=== PATIENT | male | born 1950 | race Caucasian/White ===

== ENCOUNTER → 2017-08-22 | Outpatient (CLI) | payer OTHER | LOC: BRMIMAGING 13:04 | PROVIDERS: ATTEND Family Medicine | DX: Z13.820 Encounter for screening for osteoporosis (principal); M85.89 Other specified disorders of bone density and structure, multiple sites ==

== ENCOUNTER → 2017-11-25 | Outpatient (CLI) | payer MEDICARE, OTHER | LOC: FIMAGING 13:29 | PROVIDERS: ATTEND Family Medicine | DX: I82.593 Chronic embolism and thrombosis of other specified deep vein of lower extremity, bilateral (principal); Z79.01 Long term (current) use of anticoagulants ==

== ENCOUNTER → 2018-04-03 | Outpatient (CLI) | payer OTHER | LOC: FIMAGING 15:41 | PROVIDERS: ATTEND Urology | DX: N20.0 Calculus of kidney (principal) ==